=== PATIENT | male | born 1955 | race Caucasian/White ===

== ENCOUNTER 2018-07-15 11:27 | Emergency (ER) | payer SELFPAY ==
--- OUTSIDE RECORDS SUMMARY | 2018-07-15 12:01 | XMS REPORT | Continuity of Care Document ---
:1955 External Reference #:[id number] Author Name FranklinjahairaLadi Care Team Providers Name Role Phone Tucker Triplett MD Care Team Information Quilt Maker Unavailable Tucker Triplett MD Primary Care Physician Unavailable Payers Date Identification Numbers Payment Provider Subscriber Effective: Policy Number: [id number] [employer] Abdoul Yost 2013 Medicaid Expires: 2016 PayID: [id number] [id number] [place] [address] Advance Directives Type Date Description Status Comment Other Directive 09/20/2017 Health Care Proxy Current and Verified Problems Date Description Provider Status Onset: 05/21/2007 Mitral valve disorder Tucker Triplett M.D.,FACP Active Note: MVP Onset: 05/21/2007 Family history of malignant Tucker Triplett, Active neoplasm of gastrointestinal Melisa,FACP tract Onset: 02/11/2018 Benign prostatic hypertrophy Tucker Triplett, Active without outflow obstruction MelisaFACP Onset: 05/21/2007 Palpitations Tucker Triplett, Resolved Melisa,FACP Resolved: 09/20/2017 Onset: 05/21/2007 Difficulty breathing Tucker Triplett M.D.,FACP Resolved Resolved: 09/20/2017 Onset: 05/21/2007 Chronic fatigue syndrome Tucker Triplett M.D.,FACP Resolved Resolved: 09/20/2017 Family History Date Family Member(s) Observation Comments Father due to Cancer, Colon () Mother Multiple Myeloma Siblings 4 2 bro, 2 sis First Brother Peripheral Vascular Disease (PVD) varicose veins First Sister Heart Murmur Maternal Grandfather due to SD () Social History Type Date Description Comments Sex Unknown Marital Status Single Lives With Alone 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 Tobacco Use Start: Unknown Never Smoked Cigarettes ETOH Use 02/11/2018 Denies alcohol use Recreational Drug Use Current Drug User Tobacco Use Start: Unknown Patient has never smoked Smoking Status Reviewed: 07/15/18 Patient has never smoked Allergies, Adverse Reactions, Alerts Description No Known Drug Allergies Medications Medication Date Status Form Strength Qnty SIG Indications Ordering Provider Magnesium 02/11/ Active Tablets 400mg 90tabs has not been Tucker Reese 2017 taking-----1 Kezia Triplett, by mouth M.D.,FACP every evening Ketoconazole 02/11/ Active Cream 2% 45g apply to Tucker 2018 affected Kezia Triplett, area bid prn M.D.,FACP Vitamin C / Active Capsules 500mg 1 by mouth Unknown 0000 every day- prn seasonal No Active 04/15/ Hx Unknown Medications 2013 - 2017 Prednisone 11/13/ Hx Tablets 10mg 9tabs as directed Joan 2011 - and Rivera, 02/10/ instructed M.D. 2011 to the patient Prednisone 11/12/ Hx Tablets 10mg 23tabs take 3 tab 692.6 Joan 2011 - daily x 5 , 02/10/ days then 2 M.D. 2011 tab daily x 3 days and then 1 tab daily until all taken Prednisone 10/24/ Hx Tablets 10mg 30tabs take 3 tab Joan 2011 - daily x 7 Rivera, 02/10/ days then 2 M.D. 2011 tab daily x 3 days and then 1 tab daily until all taken Prednisone 10/07/ Hx Tablets 20mg 25tabs 3 tab by 692.6 Joan 2011 - mouth every Rivera, 11/12/ day x2 days M.D. 2011 then 2 tab daily for 5 days, then 1 tab daily for 5 days then 1/2 tab daily until all taken Hydroxyzine 10/07/ Hx Tablets 25mg 15tabs 1 tab by 692.6 Joan HCL 2011 - mouth every Rivera, 02/10/ night as M.D. 2012 needed Keflex 10/07/ Hx Capsules 500mg 20caps 1 po tid 684 Joan 2011 - Rivera, 02/10/ M.D. 2012 Ibuprofen 10/07/ Hx Tablets 800mg 30tabs 1 tab every 692.6 Joan 2012 - 8 hrs as Miguel, 02/10/ needed for Philip.Kezia 2011 pain Ketoconazole 06/01/ Hx Cream 2% 45g apply to Tucker 2010 - affected Kezia Triplett, 04/15/ bid prn Melisa,FACP 2013 Aspirin 08/23/ Hx Tablets DR 81mg 50tabs 1 po qd Tucker 2010 - Kezia Triplett, 09/15/ Melisa,FACP 2010 Xolegel 05/21/ Hx Gel 2% 1Tube topical qd 780.71 Tucker 2006 - prn Kezia Triplett, 12/27/ Melisa,FACP 2009 Vitamin C / Hx Chewtabs 250mg 1 po qd Unknown 0000 - 2011 Vitamin D / Hx Capsules 1000Unit po qd Unknown 0000 - 2011 Aspirin Ec / Hx Tablets DR 325mg take one Unknown 0000 - daily 2018 Immunizations CPT Code Status Date Vaccine Lot # [id number] Given 04/13/2016 Influ Virus Vaccine, Quadrivalent, Split Virus, [place] [id number] [id number] Given 04/15/2014 Flu Vaccine Split Virus Preservative Free For [id number] Indiv 3Yr Older [id number] Given 11/18/2012 Tdap - Tetanus/Diptheria/Acellular Pertussis [id number] Given 03/08/2012 Fluvirin Im 3Yrs And Older [id number] Given 03/08/2012 Fluvirin Im 3Yrs And Older Vital Signs Date Vital Result Comment 07/15/2018 10:02am Height 73.5 inches 6'1.50" Weight 172.00 lb Heart Rate 63 /min BP Systolic Sitting 128 mmHg BP Diastolic Sitting 78 mmHg Body Temperature 96.8 F O2 % BldC Oximetry 98 % BMI (Body Mass Index) 22.4 kg/m2 02/11/2018 3:08pm Height 73.5 inches 6'1.50" Weight 170.00 lb Heart Rate 59 /min BP Systolic Sitting 124 mmHg BP Diastolic Sitting 62 mmHg Body Temperature 98.2 F O2 % BldC Oximetry 96 % BMI (Body Mass Index) 22.1 kg/m2 09/20/2017 1:50pm Height 74 inches 6'2" Weight 174.00 lb Heart Rate 68 /min BP Systolic Sitting 142 mmHg BP Diastolic Sitting 74 mmHg Body Temperature 98.1 F O2 % BldC Oximetry 97 % BMI (Body Mass Index) 22.3 kg/m2 04/15/2014 10:16am Height 74 inches 6'2" Weight 173.75 lb Heart Rate 60 /min BP Systolic Sitting 110 mmHg BP Diastolic Sitting 64 mmHg Body Temperature 97.0 F BMI (Body Mass Index) 22.3 kg/m2 01/25/2014 2:16pm Weight 174.75 lb Heart Rate 64 /min BP Systolic Sitting 114 mmHg BP Diastolic Sitting 70 mmHg Body Temperature 98.0 F 11/18/2012 4:04pm Weight 172.00 lb Heart Rate 60 /min BP Systolic Sitting 124 mmHg BP Diastolic Sitting 72 mmHg 02/11/2012 9:09am Height 74.75 inches 6'2.75" Weight 181.00 lb Heart Rate 60 /min BP Systolic Sitting 120 mmHg BP Diastolic Sitting 72 mmHg Body Temperature 97.3 F lt ear BMI (Body Mass Index) 22.8 kg/m2 11/13/2011 11:32am Height 74.75 inches 6'2.75" Weight 180.00 lb Heart Rate 64 /min BP Systolic Sitting 108 mmHg l BP Diastolic Sitting 68 mmHg l BMI (Body Mass Index) 22.6 kg/m2 10/08/2011 10:14am Height 74.75 inches 6'2.75" Weight 180.00 lb BP Systolic Sitting 120 mmHg L BP Diastolic Sitting 62 mmHg L BMI (Body Mass Index) 22.6 kg/m2 09/15/2010 2:16pm Weight 180.00 lb Heart Rate 62 /min BP Systolic Sitting 126 mmHg BP Diastolic Sitting 70 mmHg 08/23/2010 9:37am Weight 180.00 lb Heart Rate 80 /min BP Systolic Sitting 116 mmHg BP Diastolic Sitting 68 mmHg 12/27/2009 3:33pm Weight 176.00 lb Heart Rate 58 /min BP Systolic Sitting 116 mmHg BP Diastolic Sitting 78 mmHg 05/21/2007 2:37pm Height 73.5 inches 6'1.50" Weight 173.00 lb Heart Rate 62 /min BP Systolic Sitting 118 mmHg BP Diastolic Sitting 66 mmHg BMI (Body Mass Index) 22.5 kg/m2 Results Test Date Facility Test Result H/L Range Note Lipid Profile 01/31/2018 [facility] Triglycerides 65 mg/dL 1 (Trig/Chol/HDL) [address] [place] [address] [phone] Cholesterol 138 mg/dL 2 HDL Cholesterol 62.7 mg/dL 3 LDL Cholesterol 62 mg/dL 4 Basic Metabolic Panel 01/31/2018 [facility] Sodium 139 mmol/L N 135-145 [address] [place] [address] [phone] Potassium 4.2 mmol/L N 3.5-5.0 Chloride 104 mmol/L N 101-111 Co2 Carbon Dioxide 30 mmol/L N 22-32 Anion Gap 5 mmol/L N 2-11 Glucose 96 mg/dL N 70-100 Blood Urea Nitrogen 15 mg/dL N 6-24 Creatinine 0.91 mg/dL N 0.67-1.17 BUN/Creatinine Ratio 16.5 N 8-20 Calcium 9.2 mg/dL N 8.6-10.3 Egfr Non- 84.1 >60 Egfr 101.8 >60 5 Laboratory 01/31/2018 [facility] Hepatitis C Nonreactive Nonreactive test finding [address] [facility] [place] [address] [phone] HIV 1/2 AB 01/31/2018 [facility] HIV 1 2 Nonreactive Nonreactive 6 Evaluation [address] [facility] [place] [address] [phone] Comp Metabolic 04/15/2014 [facility] Sodium 139 mmol/L N 133- 145 Panel [address] [place] [address] [phone] Potassium 4.2 mmol/L N 3.5-5.0 7 Chloride 103 mmol/L N 101-111 Co2 Carbon Dioxide 33 mmol/L High 22-32 Anion Gap 3 mmol/L N 2-11 Glucose 89 mg/dL N 70-100 Blood Urea Nitrogen 18 mg/dL N 6-24 Creatinine 0.90 mg/dL N 0.67-1.17 BUN/Creatinine Ratio 20.0 N 8-20 Calcium 9.2 mg/dL N 8.6-10.3 Total Protein 7.1 g/dL N 6.4-8.9 Albumin 4.2 g/dL N 3.2-5.2 Globulin 2.9 g/dL N 2-4 Albumin/Globulin Ratio 1.4 N 1-3 Total Bilirubin 0.60 mg/dL N 0.2-1.0 Alkaline Phosphatase 47 U/L N 34-104 Alt 21 U/L N 7-52 Ast 25 U/L N 13-39 Egfr Non- 86.4 N >60 Egfr 111.1 N >60 8 PSA Free And Total 04/15/2014 [facility] PSA Total 1.5 ng/mL N <=3.[address] [place] [address] [phone] PSA Free 0.5 ng/mL N PSA Free/Total See Comment ratio N 9 Lipid Profile 04/06/2014 [facility] Triglycerides 55 mg/dL N 10, 11 (Trig/Chol/HDL) [address] [place] [address] [phone] Cholesterol 130 mg/dL N 12 HDL Cholesterol 57.9 mg/dL N 13 LDL Cholesterol 61 mg/dL N 14 Laboratory test 04/06/2014 [facility] Glucose 91 mg/dL N 70- [address] [place] [address] [phone] Laboratory test 01/08/2013 [facility] Lyme Disease Negative Negative [address] [place] [address] [phone] Laboratory test 02/12/2012 [facility] Erythrocyte Sed 9 MM/HR 0-[address] [place] [address] [phone] Cortisol 16.6 g/dL 17 Surgical 10/24/2010 [facility] Surgical [address] Pathology <SEE NOTE> [place] [address] [phone] CBC With 09/07/2010 [facility] White Blood 5.4 CUMM 4.8- Electronic [address] Count 10.8 [place] [address] [phone] Red Cell Count 4.70 CUMM 4.6-6.2 Hemoglobin 14.2 g/dL 14.0-18.0 Hematocrit 42 % 42-52 Mean Corpuscular Volume 90 um3 80-94 Mean Corpuscular Hemoglob 30 pg 27-31 Mean Corpuscular HGB Cone 34 g/dL 32-36 Redcell Distribution WDTH 13 % 10.5-15 Platelet Count 181 CUMM 150-450 Mean Platelet Volume 7.1 um3 Low 7.4-10.4 Gran % 59.5 % 38-83 Lymph % 25.1 % 25-47 Mononuclear % 10.5 % High 1-9 Eosinophil % 4.0 % 0-6 Basophil % 0.9 % 0-2 Abs Lymphs 1.3 1.0-4.8 Abs Mononuclear 0.6 0-0.8 Absolute Neutrophil Count 3.2 1.5-7.7 Abs Eosinophils 0.2 0-0.6 Abs Basophils 0.1 0-0.2 Lipid Profile 09/07/2010 [facility] Triglyceride 46 mg/dL 40- 200 (Trig/Chol/HDL) [address] [place] [address] [phone] Cholesterol 140 mg/dL Less Than 200 19 High Density Lipoprotein 58 mg/dL 40-60 20 Cholesterol/HDL Ratio 2.41 AVERAGE 1-4.97 Low Density Lipoprotein 73 mg/dL Less Than 100 21 Comp Metabolic Panel 09/07/2010 [facility] Sodium 137 mmol/L 135-145 [address] [place] [address] [phone] Potassium 4.1 mmol/L 3.5-5.0 Chloride 105 mmol/L 101-111 Co2 (Carbon Dioxide) 29.0 mmol/L 22-32 Anion Gap 3.0 mmol/L 2-11 22 Glucose 94 mg/dL 70-100 BUN 14 mg/dL 6-24 Creatinine 0.90 mg/dL 0.50-1.40 One Over Creatinine 1.10 BUN/Creatinine Ratio 15.6 8-20 Calcium 9.0 mg/dL 8.1-9.9 Total Protein 6.4 GM/DL 6.2-8.1 Albumin 4.1 GM/DL 3.6-5.4 Globulin 2.3 GM/DL 2-4 Albumin/Globulin Ratio 1.8 1-3 Bilirubin Total 0.9 mg/dL 0.4-1.5 23 Alkaline Phosphatase 42 U/L 39-117 Alt (SGPT) 18 U/L 17-63 Ast (Sgot) 21 U/L 12-42 eGFR Non- 87.3 > 60 eGFR 112.3 > [address] [facility] 09/07/2010 [facility] TSH 4.40 MIU/ML 0.34- 5.60 Panel [address] [place] [address] [phone] Laboratory test 08/21/2010 [facility] Troponin- 0 NG/ML 0- 0.06 25 finding [address] [place] [address] [phone] D Dimer Quantitative < 200 NG/ML Less Than 230 26 Comp Metabolic Panel 08/21/2010 [facility] Sodium 136 mmol/L 135-145 [address] [place] [address] [phone] Potassium 3.9 mmol/L 3.5-5.0 Chloride 103 mmol/L 101-111 Co2 (Carbon Dioxide) 25.0 mmol/L 22-32 Anion Gap 8.0 mmol/L 2-11 27 Glucose 114 mg/dL High 70-100 BUN 15 mg/dL 6-24 Creatinine 0.78 mg/dL 0.50-1.40 One Over Creatinine 1.20 BUN/Creatinine Ratio 19.2 8-20 Calcium 9.2 mg/dL 8.1-9.9 Total Protein 6.9 GM/DL 6.2-8.1 Albumin 4.3 GM/DL 3.6-5.4 Globulin 2.6 GM/DL 2-4 Albumin/Globulin Ratio 1.7 1-3 Bilirubin Total 0.7 mg/dL 0.4-1.5 28 Alkaline Phosphatase 41 U/L 39-117 Alt (SGPT) 21 U/L 17-63 Ast (Sgot) 25 U/L 12-42 eGFR Non- 103.0 > 60 eGFR 132.4 > 60 29 Laboratory test 08/21/2010 [facility] PTT (Aptt) 29.0 25.15- 38.53 finding [address] [place] [address] [phone] Protime 08/21/2010 [facility] Inr 1.05 0.82-1.17 30 [address] [place] [address] [phone] Protime 12.4 SEC 10.2-14.8 31 CBC Auto Diff 08/21/2010 [facility] White Blood 5.7 CUMM 4.8- 10.8 [address] [facility] [place] [address] [phone] Red Cell Count 4.88 CUMM 4.6-6.2 Hemoglobin 15.0 g/dL 14.0-18.0 Hematocrit 43 % 42-52 Mean Corpuscular Volume 88 um3 80-94 Mean Corpuscular Hemoglob 31 pg 27-31 Mean Corpuscular HGB Cone 35 g/dL 32-36 Redcell Distribution WDTH 13 % 10.5-15 Platelet Count 208 CUMM 150-450 Mean Platelet Volume 6.6 um3 Low 7.4-10.4 Gran % 67.7 % 38-83 Lymph % 20.3 % Low 25-47 Mononuclear % 9.2 % High 1-9 Eosinophil % 2.2 % 0-6 Basophil % 0.6 % 0-2 Abs Lymphs 1.1 1.0-4.8 Abs Mononuclear 0.5 0-0.8 Absolute Neutrophil Count 3.8 1.5-7.7 Abs Eosinophils 0.1 0-0.6 Abs Basophils 0 0-0.2 CBC With 06/20/2007 [facility] White Blood 4.7 CUMM Low 4.8- 10.8 32 Electronic Diff [address] [place] [address] [phone] Abs Basophils 0.1 0-0.2 Abs Eosinophils 0.1 0-0.6 Absolute Neutrophil Count 2.5 1.5-7.7 Abs Lymphs 1.5 1.0-4.8 Abs Mononuclear 0.5 0-0.8 Basophil % 1.1 % 0-2 Hematocrit 45 % 42-52 Hemoglobin 15.4 g/dL 14.0-18.0 Eosinophil % 2.4 % 0-6 Gran % 55.6 % 38-83 Lymph % 31.0 % 20-45 Mean Corpuscular HGB Cone 35 g/dL 32-36 Mean Corpuscular Hemoglob 31 pg 27-31 Mean Corpuscular Volume 90 um3 80-94 Mean Platelet Volume 6.8 um3 Low 7.4-10.4 Mononuclear % 9.9 % High 1-9 Platelet Count 211 CUMM 150-450 Red Cell Count 4.94 CUMM 4.6-6.2 Redcell Distribution WDTH 12 % 10.5-15 Laboratory test 06/20/2007 [facility] TSH 3.09 MIU/ML 0.34- 5.[address] [place] [address] [phone] Lipid Profile 06/20/2007 [facility] Cholesterol 2.92 AVERAGE 1-4.97 (Trig/Chol/HDL) [address] /[place] [address] [phone] Cholesterol 152 mg/dL Less Than 200 33 Triglyceride 53 mg/dL 40-200 High Density Lipoprotein 52 mg/dL 40-60 Low Density Lipoprotein 89 mg/dL Less Than 100 34 Basic Metabolic 06/20/2007 [facility] One Over Creatinine 0.90 Panel [address] [place] [address] [phone] Anion Gap 7.0 mmol/L 2-11 35 BUN 17 mg/dL 6-24 Calcium 8.9 mg/dL 8.7-10.2 Chloride 100 mmol/L Low 101-111 Co2 (Carbon Dioxide) 29.0 mmol/L 22-32 Glucose 82 mg/dL 70-105 Potassium 3.8 mmol/L 3.5-5.0 Sodium 136 mmol/L 135-145 BUN/Creatinine Ratio 15.5 8-20 Creatinine 1.1 mg/dL 0.5-1.4 Laboratory test 06/20/2007 [facility] PSA Screening 1.26 NG/ML 0-4 36 finding [address] [place] [address] [phone] Urinalysis 06/20/2007 [facility] Ua Color STRAW [address] [place] [address] [phone] Appearance-Urine CLEAR Bilirubin-Ur NEGATIVE Negative Blood-Urine NEGATIVE Negative Esterase-Urine NEGATIVE Negative Glucose-Urine NEGATIVE Negative Ketones-Urine NEGATIVE Negative Nitrite NEGATIVE Negative PH-Urine 6.0 5-9 Protein-Urine NEGATIVE Negative [id number] NEGATIVE Negative Specific [place]-Ur 1.012 1.010-1.030 1 Desirable: <150 Borderline High: 150-199 High: 200-499 Very High: >500 2 Desirable: <200 Borderline High: 200-239 High: >239 3 Low: <40 Desirable: 40-60 High: >60 4 Desirable: <100 Near Optimal: 100-129 Borderline High: 130-159 High: 160-189 Very High: >189 5 Because ethnic data is not always readily available, this report includes an eGFR for both -Americans and non- Americans. The National Kidney Disease Education Program (NKDEP) does not endorse the use of the MDRD equation for patients that are not between the ages of 18 and 70, are , have extremes of body size, muscle mass, or nutritional status, or are non- or non-. According to the National Kidney Foundation, irrespective of diagnosis, the stage of the disease is based on the level of kidney function: Stage Description GFR(mL/min/1.73 m(2)) 1 Kidney damage with normal or decreased GFR 90 2 Kidney damage with mild decrease in GFR 60-89 3 Moderate decrease in GFR 30-59 4 Severe decrease in GFR 15-29 5 Kidney failure <15 (or dialysis) 6 It is recognized that currently available assays for the detection of antibodies to HIV-1 and/or HIV-2 may not detect all infected individuals. HIV antibodies may be undetectable in some stages of the infection and in some clinical conditions. The performance of this assay has not been established for populations of infants or children. Assayed by Chemiluminescence Microparticle Immunoassay on the Siemens Advia Centaur CP. Values obtained with different methods or kits cannot be used interchangeably.The diagnostic specificity of the ADVIA Centaur 1/O/2 Enhanced assay in the low risk population was 99.90% (6052/6058) with a 95% confidence interval of 99.78 to 99.96%. 7 Potassium reference range changed effective 04/04/14 8 Because ethnic data is not always readily available, this report includes an eGFR for both -Americans and non- Americans. The National Kidney Disease Education Program (NKDEP) does not endorse the use of the MDRD equation for patients that are not between the ages of 18 and 70, are , have extremes of body size, muscle mass, or nutritional status, or are non- or non-. According to the National Kidney Foundation, irrespective of diagnosis, the stage of the disease is based on the level of kidney function: Stage Description GFR(mL/min/1.73 m(2)) 1 Kidney damage with normal or decreased GFR 90 2 Kidney damage with mild decrease in GFR 60-89 3 Moderate decrease in GFR 30-59 4 Severe decrease in GFR 15-29 5 Kidney failure <15 (or dialysis) 9 Ratio not calculated because clinical usefulness is not defined except in range of total PSA 4.0-10.0 ng/mL. ADDITIONAL INFORMATION The testing method is an electrochemiluminescence assay manufactured by [employer] and performed on the Modular or Jesus system. Values obtained with different assay methods or kits may be different and cannot be used interchangeably. Test results cannot be interpreted as absolute evidence for the presence or absence of malignant disease. Test Performed by: [facility] [place] [address] Business Services Manager: Byron Kulkarni M.D. 10 FASTING 10 HOUR 11 Desirable <150 Borderline high 150-199 High 200-499 Very High >500 12 Desirable <200 Borderline high 200-239 High >239 13 Low <40 Desirable: 40-60 High: >60 14 Desirable <100 Near Optimal 100-129 Borderline high 130-159 High 160-189 Very High >189 15 FASTING 10 HOUR 16 Serologic response to B. burgdorferi infection is not detected, but cannot rule out early infection during which low or undetectable antibody levels to B. burgdorferi may be present. If clinically indicated, a new serum specimen should be submitted in 7-14 days. Test Performed by: [facility] [place] [address] Business Services Manager: Tyler Franklin III, M.D. 17 REFERENCE RANGE: AM 8.7-22.4 PM LESS THAN 10 . 18 ---- RUN DATE: 10/26/10 [facility] NMI LIVE PAGE 1 RUN TIME: 1205 Specimen Inquiry RUN USER: INTERFACE -- Name: ABDOUL YOST Status: REG REF Re10/24/10 Age/Sex: 55/M Unit#: [id number] Location: [address] [place] [address]. : 53 -- Specimen: [id number] SOUT Spec Date: 10/24/[address]: Franky godfrey MD Spec Type: SURGICAL P Received: 10/25/10-1240 Copies to: Tucker lopez MD SPECIMEN COLON POLYP AT 70 CM. HISTORY POST-OP DIAGNOSIS: Colonoscopy to terminal ileum. CLINICAL INFORMATION: Screening. Family history. GROSS DESCRIPTION The specimen is received in formalin labelled Abdoul Yost, Colon Polyp at 70 cm., and consists of a perez polypoid soft tissue fragment measuring 1.5 x 0.5 x 0.3 cm. Submitted entirely, one cassette. DIAGNOSIS Colon, 70 cm., biopsy: A. Tubular adenoma. B. No high grade dysplasia or malignancy. Signed Electronically by: MITCHELL DAVIDSON MD 10/26/10 1205 -- -- DEPARTMENT OF PATHOLOGY, [address] [place] [address] [facility] Permit #[id number] Mitchell Davidson M.D. Director Nunu Villalta M.D. Medical And Scientific Illustrator Dir tonio -- 19 CHOLESTEROL INTERPRETATION: Desirable: Less than 200 MG/DL Borderline-High Risk: 200-239 MG/DL High-Risk: 240 MG/DL and over 20 HDL INTERPRETATION: Undesirable: High Risk: Less than 40 MG/DL Desirable: Low Risk: Greater than 60 MG/DL 21 LDL INTERPRETATION: Low Risk Optimal Level: LDL Less than 100 MG/DL Near or Above Optimal: LDL 100-129 MG/DL Borderline High Risk: LDL 130-159 MG/DL High Risk: LDL 160-189 MG/DL Very High Risk: LDL Greater than 189 MG/DL 22 Anion gap measurement may be of limited value in the presence of any alkalosis, especially in a combined acid base disorder. . 23 A metabolite of Naproxen, O-desmethylnaproxen, has been shown to interfere with the Jendrassik-Myrtlewood method for measuring total bilirubin. Samples from patients who have taken Naproxen have shown spurious elevation in total bilirubin levels. 24 Because ethnic data is not always readily available, this report includes an eGFR for both -Americans and non- Americans. The National Kidney Disease Education Program (NKDEP) does not endorse the use of the MDRD equation for patients that are not between the ages of 18 and 70, are , have extremes of body size, muscle mass, or nutritional status, or are non- or non-. According to the National Kidney Foundation, irrespective of diagnosis, the stage of the disease is based on the level of kidney function: Stage Description GFR(mL/min/1.73 m(2)) 1 Kidney damage with normal or decreased GFR 90 2 Kidney damage with mild decrease in GFR 60-89 3 Moderate decrease in GFR 30-59 4 Severe decrease in GFR 15-29 5 Kidney failure <15 (or dialysis) 25 New Reference Range and Interpretation effective 03/06/2002 TnI (ng/ml) INTERPRETATION Less Than 0.06 ng/mL NOT SUPPORTIVE OF DIAGNOSIS OF SD 0.06 - 0.50 ng/ml INDETERMINATE: SUGGEST SERIAL STUDIES IF CLINICALLY INDICATED. Greater than 0.5 ng/mL CONSISTENT WITH DIAGNOSIS OF SD . 26 Please note: The following may produce a false positive D Dimer test: - Rheumatoid factor greater than 60 IU/ml - Plasma hemoglobin greater than 0.05 gm/dl - Bilirubin greater than 50 mg/dl - Lipids greater than 1000 mg/dl - FDP greater than 20 ug/ml . 27 Anion gap measurement may be of limited value in the presence of any alkalosis, especially in a combined acid base disorder. . 28 A metabolite of Naproxen, O-desmethylnaproxen, has been shown to interfere with the Jendrassik-Myrtlewood method for measuring total bilirubin. Samples from patients who have taken Naproxen have shown spurious elevation in total bilirubin levels. 29 Because ethnic data is not always readily available, this report includes an eGFR for both -Americans and non- Americans. The National Kidney Disease Education Program (NKDEP) does not endorse the use of the MDRD equation for patients that are not between the ages of 18 and 70, are , have extremes of body size, muscle mass, or nutritional status, or are non- or non-. According to the National Kidney Foundation, irrespective of diagnosis, the stage of the disease is based on the level of kidney function: Stage Description GFR(mL/min/1.73 m(2)) 1 Kidney damage with normal or decreased GFR 90 2 Kidney damage with mild decrease in GFR 60-89 3 Moderate decrease in GFR 30-59 4 Severe decrease in GFR 15-29 5 Kidney failure <15 (or dialysis) 30 Recommended INR for Patients on Oral Anticoagulants Prophylaxis 2.0 - 3.0 Treatment of thrombosis 2.0 - 3.0 Prevention of embolism 2.0 - 3.0 Prevention of embolism from prosthetic heart valves 2.5 - 3.5 31 DIAGNOSIS,TREATMENT,AND THERAPY MUST BE BASED ON THE INR VALUE ALONE. 32 PATIENT MAY HAVE RESULTS PER DOCTOR'S AUTHORIZATION. Questions regarding this report should be directed to your doctor. 33 Classification: Desirable . 34 CALCULATED LDL APPROXIMATES THE VALUE OF A DIRECT LDL MEASUREMENT. Classification: Optimal Level . 35 Anion gap measurement may be of limited value in the presence of any alkalosis, especially in a combined acid base disorder. . 36 * SERUM LEVELS OF PSA MEASURED USING THE [employer] ACCESS HYBRITECH IMMUNOASSAY SHOULD NOT BE INTERPRETED ABSOLUTE EVIDENCE OF THE PRESENCE OR ABSENCE OF DISEASE. THE PSA VALUE SHOULD BE USED IN CONJUNCTION WITH OTHER PERTINENT CLINICAL DIAGNOSTIC PROCEDURES. Procedures Date Code Description Status 10/14/2017 46764 Stress Test Completed 01/25/2014 39163 EKG Tracing & Interpretation Completed 10/24/2010 33488400 Colonoscopy Completed 08/28/2010 37989 ECHO Stress Test Incl Perf Contiuous ekg Monitoring Completed W/Phys Superv 04/12/2004 24844 Color Doppler Completed 04/12/2004 21744 Pulse Doppler & Continuous Wave Completed 04/12/2004 80465 Echocardiogram Completed Encounters Type Date Location Provider Dx Diagnosis Office Visit 02/11/2018 Polly Mast Z00.01 Encounter for 3:00p John Triplett M.D.,FACP general [facility] medical exam w abnormal findings R07.9 Chest pain, unspecified Office Visit 09/20/2017 2:00p Polly Mast R07.9 Chest pain, John Triplett M.D.,FACP unspecified [address] R49.0 Dysphonia Office Visit 04/15/2014 10:00a [facility] Internal Edgar Guevara, V70.0 Examination Medicine - HOSSEIN [facility] Routine AT Health Care Facility 729.1 Myalgia & Myositis Unspec v04.81 Need For Prophylactic Vaccination & Inoculation/Influenza Office Visit 01/25/2014 2:00p Polly Mast 786.50 Pain Chest John Triplett M.D.,FACP Unspec [place] 702.0 Actinic Keratosis Office Visit 11/18/2012 4:00p [facility] Internal [place] E906.4 Bite Nonvenomous John Simmons M.D. Arthropod [place] V06.1 Lpsvqhdgpg-Ovxjsdj-Dcgndvfy Combined (DTaP) Office Visit 02/11/2012 9:10a [facility] Internal Tucker Mast 825.25 FX Other Bones John Triplett M.D.,[facility] Metatarsal [place] Bone(S) Closed 725 Polymyalgia Rheumatica Office Visit 11/13/2011 11:30a [facility] Internal Joan 692.6 Dermatitis John Rivera M.D. Contact Due To [place] Plants (Except Food) Office Visit 10/08/2011 10:15a [facility] Internal Joan 692.6 Dermatitis John Rivera M.D. Contact Due To [place] [employer] (Except Food) 684 Impetigo Office Visit 02/16/2011 DO Not Use Huc Nohemy Pritchard, 110.9 Dermatophytosis 2:15p AT [facility] 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 Shoulder Region Office Visit 05/21/2007 2:00p DO Not Use Huc Tucker Mast 788.69 Urinary AT Shanelle Triplett M.D.,[facility] Abnormaltiy Other 424.0 Mitral Valve Disorder 785.1 Palpitations V16.0 History Family Malignant Neoplasm Gastrointestinal Tract 786.09 Dyspnea & Respiratory Abnormalities Other 780.71 Chronic Fatigue Syndrome V70.0 Examination General Medical Routine AT Health Care Facility Plan of Treatment 07/15/2018 - Joan Rivera M.D.R10.31 Right lower quadrant painComments:Need to go to ER for furthur evaluation as sometimes appendicitis or kidney stone can present this way too
[2018-07-15 13:31] LABS: ABS Basophils 0.1 10^3/ul (0-0.2); ABS Eosinophils 0.1 10^3/ul (0-0.6); ABS Monocytes 0.4 10^3/ul (0-0.8); ABS Nucleated RBC 0 10^3/ul; Eosinophil % 1.8 %; Hematocrit 45 % (42-52); Hemoglobin 15.1 g/dl (14.0-18.0); Lymphocyte % 22.6 %; Mean Corpuscular HGB Conc 34 g/dl (31-36); Mean Corpuscular Hemoglobin 30 pg (27-31); Mean Corpuscular Volume 91 fL (80-94); Mean Platelet Volume 6.8 fL (7.4-10.4); Nucleated Red Blood Cells % 0.1; Platelet Count 176 10^3/ul (150-450); Red Blood Count 4.95 10^6/ul (4.00-5.40); Red Cell Distribution Width 13 % (10.5-15); White Blood Count 4.6 10^3/ul (3.5-10.8)
[2018-07-15 13:48] LABS: INR 0.96 (0.77-1.02)
[2018-07-15 13:50] LABS: ALT 16 U/L (7-52); AST 21 U/L (13-39); Albumin 4.6 g/dL (3.2-5.2); Albumin/Globulin Ratio 1.5 (1-3); Alkaline Phosphatase 39 U/L (34-104); Anion Gap 5 mmol/L (2-11); BUN/Creatinine Ratio 17.2 (8-20); Blood Urea Nitrogen 15 mg/dL (6-24); C Reactive Protein < 1.00 mg/L (<8.01); CO2 Carbon Dioxide 30 mmol/L (22-32); Calcium 9.9 mg/dL (8.6-10.3); Chloride 103 mmol/L (101-111); EGFR African American 106.9 (>60); EGFR Non-African American 88.3 (>60); Globulin 3.1 g/dL (2-4); Glucose 96 mg/dL (70-100); Potassium 4.5 mmol/L (3.5-5.0); Sodium 138 mmol/L (135-145); Total Protein 7.7 g/dL (6.4-8.9)
--- NOTE | 2018-07-15 13:52 | ED ---
Abdominal Pain/Male - HPI Summary HPI Summary: This pt is a 63 y/o male presenting to [facility] c/o right sided abd pain x1 week. Pt reports he has been having a dull pain on the right side of his abd for the past 1 week now. Pt rates this constant dull pain 4/10 in severity. He notes his pain is nonradiating and intermittently gets sharp pain (he rates this 8/10 in severity) and occasionally some throbbing. Pt states driving on bumpy roads and eating do not make the pain worse. Although certain position does make his pain worse. He saw his PCP, Dr. Rivera, and advised him to come to the ED to rule out appendicitis. Denies nausea, vomiting, constipation, diarrhea, urinary symptoms, difficulty passing urine. Pt states he has had a normal appetite. Denies any abd surgeries. PMHx: mitral valve prolapse, chronic fatigue. Denies tobacco use. - History of Current Complaint Chief Complaint: EDAbdPain Stated Complaint: ABD PAIN Hx Obtained From: Patient Onset/Duration: Lasting Weeks - 1, Still Present Timing: Lasting Weeks - 1 Severity Currently: Moderate Pain Intensity: 4 Pain Scale Used: 0-10 Numeric Location: Other - right sided Radiates: No Character: Dull Aggravating Factor(s): Movement - certain positions Alleviating Factor(s): Nothing Associated Signs And Symptoms: Negative: Fever, Constipation, Urinary Symptoms, Decreased Appetite, Nausea, Vomiting, Diarrhea - Allergies/Home Medications Allergies/Adverse Reactions: Allergies Allergy/AdvReac Type Severity Reaction Status Date / Time No Known Allergies Allergy Verified 07/15/18 11:39 Home Medications: Home Medications Vitamin C TAB* 1 tab PO DAILY 07/15/18 [History Confirmed 07/15/18] PMH/Surg Hx/FS Hx/Imm Hx Endocrine/Hematology History: Denies: Hx Diabetes Cardiovascular History: Reports: Other Cardiovascular Problems/Disorders - Mitral valve prolapse Infectious Disease History: No Infectious Disease History: Denies: Traveled Outside the [place] in Last 30 Days - Family History Family History: colorectal CA - Social History Occupation: Retired Substance Use Type: Reports: None Smoking Status (MU): Never Smoked Tobacco Review of Systems Constitutional: Other - POS: normal appetite Negative: Fever, Chills Positive: Abdominal Pain. Negative: Vomiting, Diarrhea, Nausea, Other - constipation Positive: no symptoms reported All Other Systems Reviewed And Are Negative: Yes Physical Exam - Summary Physical Exam Summary: Appearance: Well-appearing, Well-nourished, lying in bed comfortably Skin: Warm, dry, no obvious rash Eyes: sclera anicteric, no conjunctival pallor ENT: mucous membranes moist, pharynx appears normal Neck: Supple, nontender Respiratory: Clear to auscultation, no signs of respiratory distress Cardiovascular: Normal S1, S2. No murmurs. Normal distal pulses in tibial and radial bilaterally. Abdomen: Soft, mild right sided abd tenderness, normal active bowel sounds present Musculoskeletal: Normal, Strength/ROM Intact Neurological: A&Ox3, awake and alert, mentation is normal, speech is fluent and appropriate Psychiatric: affect is normal, does not appear anxious or depressed Triage Information Reviewed: Yes Vital Signs On Initial Exam: Initial Vitals Temp Pulse Resp BP Pulse Ox 97.7 F 62 18 141/86 99 07/15/18 11:37 07/15/18 11:37 07/15/18 11:37 07/15/18 11:37 07/15/18 11:37 Vital Signs Reviewed: Yes Diagnostics - Vital Signs Vital Signs Temp Pulse Resp BP Pulse Ox 07/15/18 13:20 98.0 F 57 16 143/79 97 07/15/18 11:37 97.7 F 62 18 141/86 99 - Laboratory Lab Results: Lab Results 07/15/18 Range/Units 13:23 WBC 4.6 (3.5-10.8) 10^3/ul RBC 4.95 (4.00-5.40) 10^6/ul Hgb 15.1 (14.0-18.0) g/dl Hct 45 (42-52) % MCV 91 (80-94) fL MCH 30 (27-31) pg MCHC 34 (31-36) g/dl RDW 13 (10.5-15) % Plt Count 176 (150-450) 10^3/ul MPV 6.8 L (7.4-10.4) fL Neut % (Auto) 65.0 % Lymph % (Auto) 22.6 % [place] % (Auto) 9.5 % Eos % (Auto) 1.8 % Baso % (Auto) 1.1 % Absolute Neuts (auto) 3.0 (1.5-7.7) 10^3/ul Absolute Lymphs (auto) 1.0 (1.0-4.8) 10^3/ul Absolute Monos (auto) 0.4 (0-0.8) 10^3/ul Absolute Eos (auto) 0.1 (0-0.6) 10^3/ul Absolute Basos (auto) 0.1 (0-0.2) 10^3/ul Absolute Nucleated RBC 0 10^3/ul Nucleated RBC % 0.1 Result Diagrams: 07/15/18 13:23 07/15/18 13:23 Lab Statement: Any lab studies that have been ordered have been reviewed, and results considered in the medical decision making process. - CT Abdomen/Pelvis CT CT Interpretation Completed By: Radiologist Summary of CT Findings: IMPRESSION: 1. Normal appendix. 2. In the right lobe of the liver there are 2 large fluid attenuation cysts, the larger one measuring 11.3 x 17.6 x 15.6 cm that causes mass effect but do not extend beyond the boundaries. 3. Smaller low-attenuation foci in the left lobe of the liver have Hounsfield units greater than that of simple cysts. These can be fully characterized with nonemergent ultrasound of the liver as a benign etiology is favored. Dr. Christopher has reviewed this report. Re-Evaluation - Re-Evaluation First Eval Re-Evaluation Time: 17:23 Comment: Reviewed CT results with the pt. Abdominal Pain Fem Course/Dx - Course Assessment/Plan: Pt is a 63 y/o male who presents with right sided abd pain x1 week. Pt reports he has been having a constant dull pain on the right side of his abd for the past 1 week now. Pt rates this dull pain 4/10 in severity. He notes his pain is nonradiating and intermittently gets sharp pain (he rates this 8/10 in severity) and occasionally some throbbing. Labs are unremarkable. Abdomen/Pelvis CT shows 1. Normal appendix. 2. In the right lobe of the liver there are 2 large fluid attenuation cysts, the larger one measuring 11.3 x 17.6 x 15.6 cm that causes mass effect but do not extend beyond the boundaries. 3. Smaller low-attenuation foci in the left lobe of the liver have Hounsfield units greater than that of simple cysts. These can be fully characterized with nonemergent ultrasound of the liver as a benign etiology is favored. Discussed CT results with Dr. Cosme, radiologist, who reports sometimes pts can have outpatient percutaneous drainage for these cysts. Paged Dr. Fuller (surgeon) and Yakelin, RN, returning the call reports he will call back after his procedure. Pt will be discharged home. I will call the pt back later today with Dr. Lubin's recommendations. - Diagnoses Provider Diagnoses: Right sided abdominal pain, Hepatic cyst - Provider Notifications Discussed Care Of Patient With: Basim Cosme Time Discussed With Above Provider: 17:18 Instructed by Provider To: Other - Discussed CT results with Dr. Cosme, radiologist, who reports sometimes pts can have outpatient percutaneous drainage for these cysts. [17:27] Spoke with Yakelin, RN, calling back for Dr. Fuller, who states he will call back. Discharge - Sign-Out/Discharge Documenting (check all that apply): Patient Departure - Discharge home Patient Received Moderate/Deep Sedation with Procedure: No - Discharge Plan Condition: Good Disposition: HOME Patient Education Materials: Acute Abdominal Pain (ED) Referrals: Ori Fuller MD [Medical Doctor] - Basim Cosme MD [Medical Doctor] - Additional Instructions: These cysts can sometimes be managed with percutaneous drainage. I will speak with our general surgeon once he has finished his current case and call you later this evening with his recommendations. - Billing Disposition and Condition Condition: GOOD Disposition: Home - Attestation Statements Document Initiated by Magui: Yes Documenting Scribe: Sylvie Duran Provider For Whom Magui is Documenting (Include Credential): Denny Christopher MD Scribe Attestation: I, Sylvie Duran, scribed for Denny Christopher MD on 07/15/18 at 1954. Scribe Documentation Reviewed: Yes Provider Attestation: The documentation as recorded by the Sylvie castaneda accurately reflects the service I personally performed and the decisions made by me, Denny Christopher MD Status of Magui Document: Viewed
[2018-07-15] MEDS ORDERED: Iohexol 300* (CONTRAST) 10 ML SDV IV ONE (14:11)
[2018-07-15 15:18] LABS: Urine Appearance Clear; Urine Bilirubin Negative (Negative); Urine Blood Negative (Negative); Urine Color Straw; Urine Glucose Negative (Negative); Urine Ketones Negative (Negative); Urine Nitrite Negative (Negative); Urine Protein Negative (Negative); Urine Specific Gravity 1.011 (1.010-1.030); Urine Urobilinogen Negative (Negative)
[2018-07-15 18:28] VITALS: BP 125/69
== END 2018-07-15 18:26 | disposition home or self-care (01) ==
LOC: ED 11:27
DX: K76.89 Other specified diseases of liver (principal); R10.9 Unspecified abdominal pain; I34.1 Nonrheumatic mitral (valve) prolapse; R53.83 Other fatigue
CPT/HCPCS: 36415; 74177; 80053; 81003; 83605; 83690; 85025; 85610; 86140; 99282; Q9967